=== PATIENT | male | born 1940 | race Caucasian/White ===

== ENCOUNTER 2018-11-24 10:32 | Inpatient (IN) | payer MEDICARE ==
[2018-11-24] VITALS (11 sets, daily range): BP systolic 123–159; BP diastolic 69–92
[~2018-11-24] VITALS: Ht 190.5 cm; Wt 91.7 kg
[2018-11-24] MEDS ORDERED: ALTEPLASE 100 MG VIAL ONE (11:07)
[2018-11-24 11:13] LABS: BASOPHILS % (AUTO) 0.5 % (0.0-5.0); EOSINOPHILS % (AUTO) 1.5 % (0.0-8.0); HEMATOCRIT 43.4 % (42-54); LYMPHOCYTES % (AUTO) 22.9 % (21.0-51.0); MEAN CORPUSCULAR HEMOGLOBIN 30.3 pg (27.0-33.0); MEAN CORPUSCULAR HGB CONC 33.3 g/dL (32.0-36.0); MEAN CORPUSCULAR VOLUME 90.9 fL (79-99); NEUTROPHILS % (AUTO) 68.1 % (40.0-77.0); NUCLEATED RED BLOOD CELLS 0.1 % (0.0-0.19); PLATELET COUNT (AUTO) 211 K/uL (130-400); RED BLOOD CELL COUNT(AUTO) 4.78 MIL/uL (4.50-6.20); RED CELL DISTRIBUTION WIDTH 13.7 % (11.0-15.5); WHITE BLOOD COUNT (AUTO) 6.7 K/uL (4.8-10.8)
[2018-11-24 11:18] LABS: POTASSIUM 4.1 mmol/L (3.5-5.1)
[2018-11-24 11:23] LABS: BILIRUBIN,TOTAL 0.7 mg/dL (0.2-1.0); TOTAL PROTEIN, SERUM 7.3 g/dL (6.0-8.3)
[2018-11-24 11:34] LABS: APPEARANCE,URINE Clear (CLEAR); BILIRUBIN,URINE Negative (NEGATIVE); COLOR,URINE Yellow (YELLOW); GLUCOSE, URINE (UA) Negative (NEGATIVE); KETONES,URINE Negative (NEGATIVE); LEUKOCYTE ESTERASE ,URINE Negative (NEGATIVE); NITRATE,URINE Negative (NEGATIVE); OCCULT BLOOD,URINE Negative (NEGATIVE); PH,URINE 6.5 (5.0-8.0); PROTEIN,URINE Negative (NEGATIVE); UROBILINOGEN,URINE 0.2 mg/dL (0.2-1.0)
[2018-11-24 11:36] LABS: INR 0.93 (0.85-1.15); PARTIAL THROMBOPLASTIN TIME 26.9 SEC (26.3-35.5); PROTHROMBIN TIME 9.8 SEC (9.6-11.6)
[2018-11-24] MEDS ORDERED: LYSI100014 PO (17:23)
[2018-11-24] MEDS ORDERED: SIMV40TA5 PO (17:23)
[2018-11-24] MEDS ORDERED: CALC-322 PO (17:23)
[2018-11-24] MEDS ORDERED: OXYB10TA PO (17:23)
[2018-11-24] MEDS ORDERED: ASCO10007 PO (17:23)
[2018-11-24] MEDS ORDERED: AEC81 PO (17:23)
[2018-11-24] MEDS ORDERED: PANT40TA25 PO (17:23)
--- NOTE | 2018-11-24 17:45 | NUR ---
DR. LANGSTON IN TO SEE PT. PLAN OF CARE DISCUSSED. NEW ORDERS RECEIVED AND NOTED.
--- NOTE | 2018-11-24 18:00 | NUR ---
DR. NORMAN CALLED AND UPDATED IN PT CONDITION. WILL SEE PT IN AM.
--- NOTE | 2018-11-24 20:00 | NUR ---
Neuro status Patient is neurologically intact. NIH score of 0, will continue to monitor patient closely, and neuro checks Q1hr as per order.
[2018-11-24] MEDS: FAMOTIDINE 20MG TAB 20 MG TAB PO SCH (21:20)
[2018-11-25] VITALS (17 sets, daily range): BP systolic 105–150; BP diastolic 55–93
[2018-11-25] MEDS: FAMOTIDINE 20MG TAB 20 MG TAB PO SCH ×2 (07:45→20:14)
--- NOTE | 2018-11-25 11:30 | NUR ---
DYSPHAGIA EVAL COMPLETE. -S/S OF ASPIRATION. RECOMMEND REGULAR, THIN LIQUID DIET; PILLS WHOLE WITH LIQUIDS. PATIENT INFORMATION: Pt IS A 78 Y.O. MALE REFERRED FOR A BEDSIDE DYSPHAGIA EVALUATION SECONDARY TO ADMITTED DIAGNOSIS OF CVA. Pt AAOX3 AND COOPERATIVE DURING THE EVALUATION. Pt ADMITTED SECONDARY TO ACUTE ISCHEMIC RIGHT MCA STROKE AND RECEIVED TPA. 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 EVALUATION: SWALLOW FUNCTION AND EFFICIENCY WITHIN FUNCTIONAL LIMITS. ORAL MOTOR STRENGTH, COORDINATION, AND ROM WITHIN FUNCTIONAL LIMITS. LARYNGEAL ELEVATION/EXCURSION STRONG WITH TIMELY PHARYNGEAL RESPONSE. NO OVERT SIGNS OR SYMPTOMS OF ASPIRATION PRESENT AT BEDSIDE. VOCAL QUALITY CLEAR WITH NO THROAT CLEAR OR COUGH RESPONSE PRESENT. RECOMMENDATIONS: 1. REGULAR TEXTURE, THIN LIQUID DIET; PILLS WHOLE WITH LIQUIDS. 2. COMPENSATORY STRATEGIES (PROPHYLAXIS): *SEATED AT 90 DEGREE ANGLE G-CODES SWALLOWING: [id number] Addendum: 11/25/18 at 1333 by PAUL [facility]SE [facility] Amended: Links added.
--- NOTE | 2018-11-25 11:45 | NUR ---
COGNITIVE EVAL COMPLETE. COGNITIVE-LINGUISTIC ABILITIES WITHIN FUNCTIONAL LIMITS. PATIENT INFORMATION: Pt IS A 78 YEAR OLD MALE REFERRED FOR A COGNITIVE-LINGUISTIC EVALUATION SECONDARY TO DIAGNOSIS OF CVA. Pt COOPERATIVE DURING THE EVALUATION AND SERVED THE PRIMARY INFORMANT FOR MEDICAL AND SOCIAL HISTORY. Pt CURRENTLY ADMITTED SECONDARY TO ACUTE ISCHEMIC RIGHT MCA STROKE. 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 EVALUATION: Pt AAOX3. Pt REQUESTS WANTS AND NEEDS INDEPENDENTLY. Pt INTELLIGIBLE AT 100% ACCURACY TO THE UNFAMILIAR LISTENER. Pt COMMUNICATING AT CONVERSATIONAL LEVEL WITH NO DEFICITS IDENTIFIED AT THIS TIME. Pt COMPLETED COGNITIVE-LINGUISTIC EVALUATION TARGETING: ORIENTATION, ATTENTION/CONCENTRATION, MEMORY (IMMEDIATE, SHORT-TERM AND LONG-TERM), PROBLEM SOLVING, LOGIC/REASONING/INFERENCE, THOUGHT ORGANIZATION, FUNCTIONAL MATH AND TELLING TIME. Pt ABLE TO COMPLETE TASKS WITH CORRECT AND TIMELY ANSWERS TO ALL SECTIONS. G-CODES SPOKEN LANGUAGE EXPRESSION: [id number] Addendum: 11/25/18 at 1340 by NICOLE BRADFORD Amended: Links added.
[2018-11-25 13:52] LABS: HEMATOCRIT 45.7 % (42-54); MEAN CORPUSCULAR HEMOGLOBIN 30.4 pg (27.0-33.0); MEAN CORPUSCULAR HGB CONC 33.6 g/dL (32.0-36.0); MEAN CORPUSCULAR VOLUME 90.4 fL (79-99); NUCLEATED RED BLOOD CELLS 0.1 % (0.0-0.19); PLATELET COUNT (AUTO) 208 K/uL (130-400); RED BLOOD CELL COUNT(AUTO) 5.06 MIL/uL (4.50-6.20); RED CELL DISTRIBUTION WIDTH 13.8 % (11.0-15.5); WHITE BLOOD COUNT (AUTO) 7.8 K/uL (4.8-10.8)
[2018-11-25 14:06] LABS: INR 0.96 (0.85-1.15); PARTIAL THROMBOPLASTIN TIME 26.4 SEC (26.3-35.5); PROTHROMBIN TIME 10.1 SEC (9.6-11.6)
[2018-11-25] MEDS: ASPIRIN 325MG EC TAB 325 MG TABLET.DR PO SCH (14:09)
[2018-11-25 14:11] LABS: ALANINE AMINOTRANSFERASE 27 U/L (12-78); ALBUMIN 3.7 g/dL (3.5-5.0); ASPARTATE AMINOTRANSFERASE 23 U/L (10-37); BILIRUBIN,TOTAL 0.6 mg/dL (0.2-1.0); CARBON DIOXIDE 27 mmol/L (21-32); CHLORIDE 105 mmol/L (101-111); CHOLESTEROL 130 mg/dL (<200); CREATINE KINASE, TOTAL 63 U/L (21-232); CREATININE 0.9 mg/dL (0.5-1.5); GLOMERULAR FILTR. RATE CALC 87 mL/min (>60); GLUCOSE,RANDOM 100 mg/dL (70-105); HDL CHOLESTEROL 64 mg/dL (29-71); LDL DIRECT 55 mg/dL (0-99); MYOGLOBIN 40 ng/mL (10-92); POTASSIUM 4.4 mmol/L (3.5-5.1); SODIUM SERUM 140 mmol/L (136-145); TOTAL PROTEIN, SERUM 7.2 g/dL (6.0-8.3); TRIGLYCERIDES 140 mg/dL (30-200); TROPONIN I < 0.04 ng/mL (0.00-0.06); UREA NITROGEN, BLOOD 15 mg/dL (7-18)
[2018-11-26 03:31] VITALS: BP 125/81
[2018-11-26 07:40] VITALS: BP 118/75
[2018-11-26] MEDS: FAMOTIDINE 20MG TAB 20 MG TAB PO SCH (08:32)
[2018-11-26] MEDS: ASPIRIN 325MG EC TAB 325 MG TABLET.DR PO SCH (08:32)
--- NOTE | 2018-11-26 10:15 | NUR ---
DC PLAN PATIENT DISCHARGED HOME. NO NEEDS VERBALIZED BY NURSING STAFF. Addendum: 11/27/18 at 1017 by TERRIE MOREL RN CM Amended: Links added.
[2018-11-26 11:40] VITALS: BP 107/66
[2018-11-26] MEDS ORDERED: CLOPIDOGREL BISULFATE 75 MG TAB PO SCH (13:45)
[2018-11-26] MEDS ORDERED: ASPI-1012 PO (14:36)
[2018-11-26] MEDS ORDERED: CLOP75TA14 PO (14:36)
== END 2018-11-26 15:00 | disposition home or self-care (01) | DRG 62 ==
LOC: EDH 10:32 → EDHIP 15:45 → 2CH 16:48
PROVIDERS: ADMIT Internal Medicine; ATTEND Internal Medicine
DX: I63.511 Cerebral infarction due to unspecified occlusion or stenosis of right middle cerebral artery (principal); G81.94 Hemiplegia, unspecified affecting left nondominant side; I10 Essential (primary) hypertension; G47.33 Obstructive sleep apnea (adult) (pediatric); Z86.73 Personal history of transient ischemic attack (TIA), and cerebral infarction without residual deficits; Z87.891 Personal history of nicotine dependence; Z95.0 Presence of cardiac pacemaker; Z80.9 Family history of malignant neoplasm, unspecified; Z82.49 Family history of ischemic heart disease and other diseases of the circulatory system
CPT/HCPCS: 36415; 70450; 70496; 70498; 80053; 80061; 81003; 82550; 82948; 83874; 84484; 85025; 85027; 85610; 85730; 92522; 92610; 93005; 99291; G0378; J2997